=== PATIENT | female | born 1955 | race Caucasian/White ===

== ENCOUNTER 2017-06-27 01:51 | Emergency (ER) | payer BC, OTHER ==
[2017-06-27] MEDS ORDERED: OXYcodone/APAP 5/325MG TABLET ONE (02:25)
[2017-06-27] MEDS ORDERED: OXYcodone/APAP 5/325MG TABLET PO ONE (02:30)
[2017-06-27 03:06] VITALS: BP 132/74
== END 2017-06-27 03:08 | disposition home or self-care (01) ==
LOC: ED 02:51
DX: G50.0 Trigeminal neuralgia (principal); F17.200 Nicotine dependence, unspecified, uncomplicated; Z90.710 Acquired absence of both cervix and uterus
CPT/HCPCS: 99283